=== PATIENT | female | born 1955 | race Caucasian/White ===

== ENCOUNTER → 2018-07-12 15:41 | Outpatient (CLI) | payer OTHER | END | disposition home or self-care (01) | LOC: LAB 15:41 | DX: R10.13 Epigastric pain (principal); G43.809 Other migraine, not intractable, without status migrainosus; Z13.89 Encounter for screening for other disorder ==

== ENCOUNTER 2021-06-11 12:52 | Outpatient (CLI) | payer OTHER | END 2021-06-11 13:03 | disposition home or self-care (01) | LOC: RAD 12:52 | PROVIDERS: ATTEND Specialist | DX: M62.838 Other muscle spasm (principal); M25.78 Osteophyte, vertebrae; I10 Essential (primary) hypertension ==

== ENCOUNTER 2021-06-12 06:46 | Outpatient (CLI) | payer OTHER | END 2021-06-12 07:07 | disposition home or self-care (01) | LOC: LAB 06:46 | PROVIDERS: ATTEND Specialist | DX: Z13.1 Encounter for screening for diabetes mellitus (principal); Z12.11 Encounter for screening for malignant neoplasm of colon; Z12.31 Encounter for screening mammogram for malignant neoplasm of breast ==

== ENCOUNTER 2021-06-12 08:19 | Outpatient (CLI) | payer OTHER | END 2021-06-12 08:39 | disposition home or self-care (01) | LOC: MAMO-SONO 08:19 | PROVIDERS: ATTEND Specialist | DX: R22.42 Localized swelling, mass and lump, left lower limb (principal); Z12.31 Encounter for screening mammogram for malignant neoplasm of breast; N64.59 Other signs and symptoms in breast ==

== ENCOUNTER 2021-06-14 12:35 | Outpatient (CLI) | payer OTHER | END 2021-06-14 12:36 | disposition home or self-care (01) | LOC: LAB 12:35 | PROVIDERS: ATTEND Specialist | DX: G43.009 Migraine without aura, not intractable, without status migrainosus (principal); Z13.1 Encounter for screening for diabetes mellitus; Z12.11 Encounter for screening for malignant neoplasm of colon; Z12.31 Encounter for screening mammogram for malignant neoplasm of breast ==

== ENCOUNTER 2023-05-18 07:15 | Outpatient (CLI) | payer OTHER | END 2023-05-18 14:06 | disposition home or self-care (01) | LOC: MAMO-SONO 07:15 | PROVIDERS: ATTEND General Practice | DX: G56.03 Carpal tunnel syndrome, bilateral upper limbs (principal); Z12.31 Encounter for screening mammogram for malignant neoplasm of breast; N60.01 Solitary cyst of right breast ==